=== PATIENT | female | born 1955 | race Caucasian/White ===

== ENCOUNTER 2019-08-01 17:44 | Observation (INO) | payer MEDICARE, OTHER ==
[~2019-08-01] VITALS: Ht 172.7 cm; Wt 59.1 kg
[~2019-08-01 17:44] MED LIST: ALDACTONE25 MG PO; BUSPIRONE HCL30 MG PO; METOPROLOL TART50 MG PO; NEURONTIN 300300 MG PO; NORVASC10 MG PO; PLAVIX75 MG PO; XANAX1 MG PO
[2019-08-01] MEDS ORDERED: ZESTRIL10 MG PO (17:57)
[2019-08-01] MEDS ORDERED: OXYCONTIN15 MG PO (17:58)
--- NOTE | 2019-08-01 18:56 | NUR ---
BS REPORT TO GABRIEL GEE
[2019-08-01 19:00] VITALS: BP 186/98
[2019-08-01 20:00] VITALS: BP 197/94
[2019-08-01] MEDS ORDERED: ZOLOFT100 MG PO (20:06)
[2019-08-01 22:33] VITALS: BP 197/94; BMI 19.8
[2019-08-02] VITALS: BP 187/95
[2019-08-02 01:37] LABS: CKMB 2.4 U/L (0.0-3.6); CREATINE KINASE 132 UL (21-215); TROPONIN-I 0.081 ng/mL (0.000-0.060)
--- NOTE | 2019-08-02 02:34 | NUR ---
I have reviewed this patient and I concur with the Shift Assessment completed by the Licensed Practical Nurse today this shift.
[2019-08-02 04:00] VITALS: BP 199/94
[2019-08-02 04:56] LABS: BASOPHILS 0.2 % (0-2); EOSINOPHILS 2.1 % (0-7); HEMATOCRIT 37.8 % (36.0-48.0); HEMOGLOBIN 11.8 g/dL (12-16); IMMATURE GRANULOCYTES 0.2 % (0-5); LYMPHOCYTES 13.5 % (15-50); MCH 27.4 pg (26.0-34.0); MCHC 31.2 g/dL (31.0-37.0); MCV 87.7 fL (80.0-100.0); MEAN PLATELET VOLUME 11.4 fL (7.4-10.4); MONOCYTES 11.1 % (2-11); NEUTROPHILS 72.9 % (40-80); PLATELET COUNT 219 10x3/uL (130-400); RBC 4.31 10x6/uL (4.00-5.40); RDW 18.8 % (11.5-14.5); WBC 5.7 10x3/uL (4.8-10.8)
[2019-08-02 05:02] LABS: INR 0.97 (0.85-1.17); PROTIME 12.4 SECONDS (11.6-15.0)
[2019-08-02 05:34] LABS: CALC OSMOLALITY 271 mosm/kg (275-300); CALCIUM 8.1 mg/dL (8.5-10.1); CARBON DIOXIDE 29.5 mmol/L (21.0-32.0); CHLORIDE - SERUM 102 mmol/L (98-107); CKMB 2.1 U/L (0.0-3.6); CREATINE KINASE 129 UL (21-215); CREATININE - SERUM 0.6 mg/dL (0.6-1.3); GLUCOSE 74 mg/dL (74-106); MAGNESIUM - SERUM 1.8 mg/dL (1.8-2.4); PHOSPHOROUS 3.2 mg/dL (2.5-4.9); POTASSIUM - SERUM 3.9 mmol/L (3.5-5.1); SODIUM 137 mmol/L (136-145); UREA NITROGEN 11 mg/dL (7-18); eGFR NON AFRICAN AMERICAN > 90 mL/min (90-120)
[2019-08-02 05:35] LABS: TROPONIN-I 0.079 ng/mL (0.000-0.060)
--- NOTE | 2019-08-02 07:45 | NUR ---
ALERT AND ORIENTED. TELEMERTY SHOWS SR. RIGHT AC SL. BRACE TO LEFT WRIST . C/O PAIN ALL OVER. WILL MEDICATE SOON MEDS ARE DUE. SR UP WITH CALL LIGHT IN REACH
[2019-08-02 08:19] VITALS: BP 163/72
[2019-08-02 09:46] VITALS: Ht 172.7 cm; Wt 59.1 kg
[2019-08-02 11:41] VITALS: BP 151/66
[2019-08-02 12:40] LABS: CKMB 2.5 U/L (0.0-3.6); CREATINE KINASE 119 UL (21-215); TROPONIN-I 0.026 ng/mL (0.000-0.060)
--- NOTE | 2019-08-02 12:40 | NUR ---
I have reviewed this patient and I concur with the Shift Assessment completed by the Licensed Practical Nurse today this shift.
[2019-08-02] MEDS ORDERED: ASPIRIN325 MG PO (13:00)
--- NOTE | 2019-08-02 13:33 | NUR ---
PT DISCHARGED. IV DCD WITH TIP INTACT. INSTRUCTIONS GIVEN TO PT. TO PRIVATE CAR PER WHEEL CHAIR
--- NOTE | 2019-08-04 08:59 | MORECARE ---
CASE MANAGEMENT DISCHARGE SUMMARY PATIENT: YO ROBERTS UNIT: [id number] ADM DATE: 08/01/19 AGE: 63 : 53 SEX: F ROOM/BED: D.5459 AUTHOR: LISBETH MOSELEY PHYSICIAN: REFERRING PHYSICIAN: ANDREW KC MD DATE OF SERVICE: 08/04/19 Discharge Plan Patient Name: YO ROBERTS [facility] [facility] 1955 Planned Disposition: Home Anticipated Discharge Date: 08/02/19 Discharge Date: 08/02/2019 Expected LOS: 1 Initial Reviewer: [email or web address] Initial Review Date: 08/04/2019 Generated: 08/04/19 9:58 am Patient Name: YO ROBERTS Page [phone] at 0859 All edits/amendments must be made on the electronic document DICTATION DATE: 08/04/19857 MATH AND SCIENCE DIVISION CHAIR: EMERY 08/04/1960 RPT#: [id number] DC DATE:08/02/19 STATUS: DIS IN [facility] [address] [place] [address] END OF REPORT
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
== END 2019-08-02 13:35 | disposition home or self-care (01) ==
LOC: D.ER 17:44 → D.M2 18:38 → OBSVTIME 18:38 → D.M2 08-02 13:35
PROVIDERS: ADMIT Emergency Medicine; ATTEND Emergency Medicine
DX: S20.219A Contusion of unspecified front wall of thorax, initial encounter (principal); V49.49XA Driver injured in collision with other motor vehicles in traffic accident, initial encounter; I10 Essential (primary) hypertension; F41.8 Other specified anxiety disorders; I25.10 Atherosclerotic heart disease of native coronary artery without angina pectoris; F17.200 Nicotine dependence, unspecified, uncomplicated; G25.81 Restless legs syndrome

== ENCOUNTER 2019-08-21 10:42 | Outpatient (CLI) | payer MEDICARE, OTHER ==
[~2019-08-21] VITALS: Ht 172.7 cm; Wt 58.2 kg
--- NOTE | ~2019-08-21 | HEMODYNAMI ---
PATIENT:YO ROBERTS MEDICAL RECORD: [id number] : 51 LOCATION:D.CAT ADMISSION DATE: 08/21/19 Generatedon:08/21/201913:30 Patient name: YO ROBERTS Patient #: [id number] SSN: [id number] : 1955 Date of study: 08/21/2019 Page: Of Hemodynamic Procedure Report Patient Data Patient Demographics Procedure consent was obtained First Name: YO Gender: Female Last Name: ALEJANDRA : 1955 Middle Initial: S Age: 63 year(s) Patient #: [id number] Race: SSN: [id number] Additional ID: [id number] Contact details Address: [address] [address] State: [place] City: [place] Zip code: [address] Past Medical History Allergies Allergen Reaction Date Comments Reported Penicillins 07/07/2015 Other allergy 07/07/2015 seafppd Other allergy 08/21/2019 PCN, SHELLFISH Admission Admission Data Admission Date: 08/21/2019 Admission Time: 10:42 Arrival Date: 08/21/2019 Arrival Time: 0:00 Admit Source: Other Insurance Payor: Medicare [facility] #: [id number] Height (in.): 68 BSA: 1.69 (m2) Height (cm.): 172.72 BMI: 19.5 (kg/m2) Weight (lbs.): 128.27 Weight (kg.): 58.18 Lab Results Lab Result Date: 08/21/2019 Lab Result Time: 0:00 Biochemistry Name Units Result Min Max BUN mg/dl 16 --(---*)-- 7 18 Creatinine mg/dl 0.6 --(*---)-- 0.6 1.3 eGFR ml/min 90 --(*---)-- 90 120 NONAFRICAN CBC Name Units Result Min Max Hematocrit % 40 -*(----)-- 42 54 Hemoglobin g/dl 13 -*(----)-- 13.5 17.5 Procedure Procedure Types Cath Procedure Diagnostic Procedure [facility] w/Coron[facility] Procedure Description Procedure Date Procedure Date: 08/21/2019 Procedure Start Time: 13:14 Procedure End Time: 13:27 Procedure Staff Name Function Raz Yancey MD Performing Physician Gladis Carpenter RT Monitor Marizol Alexander RT Scrub Joe Brownlee RN Nurse Procedure Data Cath Procedure Fluoroscopy Diagnostic fluoroscopy Total fluoroscopy Time: 1.5 time: 1.5 min min Diagnostic fluoroscopy Total fluoroscopy dose: 186 dose: 186 mGy mGy Contrast Material Contrast Material Type Amount (ml) Isovue 300 63 Entry Location Entry Primary Successful Side Size Upsize Upsize Entry Closure Succes sful Closure Location (Fr) 1 (Fr) 2 (Fr) Remarks Device Remarks Femoral Right 5 Fr Exoseal artery Estimated blood loss: 5 ml Diagnostic catheters Device Type Used For End Catheter Placement MULTIPACK JL 4.0 5Fr Procedure catheter MULTIPACK 3DRC 5Fr Procedure catheter MULTIPACK Pigtail 5 Fr Procedure catheter Procedure Complications No complications Procedure Medications Medication Administration Route Dosage Oxygen etCO2 Nasal cannula 2 l/min Lidocaine 2% added to field 20 Heparin Flush Bag added to field 2 bags (1000units/500ml NS) 0.9% NaCl I.V. 100 ml/hr Versed I.V. 2 mg Fentanyl I.V. 100 mcg Versed I.V. 2 mg Fentanyl I.V. 100 mcg Lopressor I.V. 5 mg Versed I.V. 2 mg Hemodynamics Rest BSA: 1.69 (m2) HGB: 13 (g/dl) O2 Consumption: Estimated: 182.43 (ml/min) O2 Cons umption indexed: Estimated:107.95 (ml/min/m) Heart Rate: 108 (bpm) Pressure Samples Time Site Value (mmHg) Purpose Heart Use Rate(bpm) 13:21 LV 191/18,20 Snapshot 76 Gradients Valve Time Site Site Mean SEP/DFP Peak To Heart Use 1 2 (mmHg) (sec/min) Peak Rate (mmHg) (bpm) Aortic 13:22 LV AO 0 Snapshots Pre Cath Intra NCS Post Cath Vital Signs Time Heart Resp SPO2 etCO2 NIBP (mmHg) Rhythm Pain Sedation Rate (ipm) (%) (mmHg) Status Level (bpm) 13:07:44 87 18 95 0 177/104(132) NSR 0 (11) 10(A) , No pain 13:12:07 82 17 98 9 176/104(155) NSR 0 (11) 10(A) , No pain 13:16:29 82 18 97 21.1 181/101(131) NSR 0 (11) 10(A) , No pain 13:20:53 75 13 97 37.7 187/105(152) NSR 0 (11) 10(A) , No pain 13:25:13 72 16 98 37.7 167/96(146) NSR 0 (11) 10(A) , No pain Medications Time Medication Route Dose Verified Delivered Reason Notes Eff ectiveness by by 13:11:30 Oxygen etCO2 2 Raz Buffie used for Nasal l/min BcAlan Brownlee ocean lifeguard specialist cannula 13:11:42 Lidocaine 2% added 20ml Raz Raz for local to vial [facility] anesthetic field MD MORA 13:11:48 Heparin Flush added 2 Raz Raz used for Bag to bags [facility] procedure (1000units/500ml field MD MORA NS) 13:11:57 0.9% NaCl I.V. 100 Raz Buffie Per ml/hr BcAlan Brownlee RN physician 13:12:02 Fentanyl I.V. 100 Raz Buffie for mcg Bc Brownlee RN sedation 13:12:56 Versed I.V. 2 mg Raz Buffie for Bc Brownlee RN sedation 13:16:20 Versed I.V. 2 mg Raz Buffie for Bc Brownlee RN sedation 13:16:24 Fentanyl I.V. 100 Raz Buffie for mcg Bc Brownlee RN sedation 13:19:59 Versed I.V. 2 mg Raz Buffie for Bc Brownlee RN sedation 13:21:17 Lopressor I.V. 5 mg Raz Buffie Per Bc Brownlee RN physician Procedure Log Time Note 12:31:07 Informed consent obtained and on chart 12:31:20 Insurance Payor : Medicare 12:31:29 Arrival Date: 08/21/2019 12:00:00 AM 12:31:42 Diagnostic Cath Status : Elective 12:32:58 Lab Result : BUN 16 mg/dl 12:32:58 Lab Result : Creatinine 0.6 mg/dl 12:32:58 Lab Result : eGFR NONAFRICAN 90 ml/min 12:32:58 Lab Result : Hemoglobin 13 g/dl 12:32:58 Lab Result : Hematocrit 40 % 12:33:36 Admit Source: Other 12:33:44 Patient Height : 68 inches 12:33:49 Patient Weight : 128.27 lbs 12:45:27 Gladis Carpenter RT(R) sent for patient. Start room use. 12:55:30 Time tracking: Regular hours (M-F 7:00 - 5:00) 12:55:37 Plan of Care:Hemodynamics will remain stable., Cardiac rhythm will remain stable., Comfort level will be maintained., Respiratory function will remain adequate., Patient/ family verbilizes understanding of procedure., Procedure tolerated without complication., Recovers from procedure without complications.. 12:55:46 Patient received from Pre/Post Procedure Room to CCL 1 Alert and oriented. Tansferred to table in Supine position. 12:55:47 Warm blankets applied, and bettie hugger turned on for patient comfort. 12:55:48 Correct patient and procedure confirmed by team. 12:55:48 ECG and BP/O2 sat monitors applied to patient. 12:56:30 Lab results completed and on chart. 12:56:48 Patient pain scale 0/10 ?. 12:57:03 IV patent on arrival in right forearm with 0.9% NaCl at O. 13:06:30 Procedure Status Elective Heart Cath (OP). 13:06:32 Vital chart was started 13:06:35 Baseline sample Acquired. 13:06:40 Rhythm: sinus rhythm 13:06:41 Full Disclosure recording started 13:06:45 H&P Date Dictated: 08/21/2019 New H&P dictated by physician.. 13:06:47 Pre-procedure instructions explained to patient. 13:06:47 Pre-op teaching completed and patient verbalized understanding. 13:06:49 Family in patients room. 13:06:50 Patient NPO since Midnight. 13:07:03 Patient allergic to Other allergyPCN, SHELLFISH 13:07:04 Is the patient allergic to Iodine/contrast media? Yes. 13:07:05 Was the patient premedicated? Yes 13:07:09 Is patient on blood thinner?No 13:07:12 Patient diabetic? No. 13:07:14 Patient not . Patient is over age 55. 13:07:17 Previous problem with sedation/anesthesia? No ? 13:07:19 Snore? Yes 13:07:21 Sleep apnea? No 13:07:21 Deviated septum? No 13:07:22 Opens mouth fully? Yes 13:07:23 Sticks out tongue? Yes 13:07:25 Airway obstruction? No ? 13:07:29 Dentures? Yes IN TIGHT 13:07:31 Pre procedure: right dorsailis pedis pulse 1+ Palpable, but thready & weak; easily obliterated 13:07:35 Patient pain scale 7/10 ?. 13:07:48 IV patent on arrival in right antecubital with 0.9% NaCl at [facility]. 13:08:00 Alarms reviewed by R. N. 13:08:01 Sharps counted by scrub and verified by R.N. 13:08:07 Right groin area was prepped with chlora-prep and draped in sterile fashion 13:10:02 Risk of Mortality: .1 13:10:05 Risk of blood transfusion: .2 13:10:08 Risk of NONA: .7 13:10:16 ACC Patient presents with Stable Angina CCS Anginal Class 4--Inability to carry out any physical activity w/o angina. Angina may occur at rest. 13:10:37 Use device set Femoral Dx 13:10:38 ACIST Syringe (05997) opened to sterile field. 13:10:38 Bag Decanter (2002S) opened to sterile field. 13:10:39 ACIST Manifold (80619) opened to sterile field. 13:10:39 ACIST Hand Control (45446) opened to sterile field. 13:10:40 Tegaderm 4 x 4 (1626W) opened to sterile field. 13:10:41 Medline Cath Pack ([id number]) opened to sterile field. 13:10:42 DIAGNOSTIC Multipack 5Fr catheter set (BE5496) opened to sterile field. 13:10:43 SHEATH 5FR Beccaria (PAF260) opened to sterile field. 13:10:44 EMERALD Guide Wire (588-564) opened to sterile field. 13:11:30 Oxygen 2 l/min etCO2 Nasal cannula was administered by Joe Brownlee RN; used for procedure; Verbal order read back and verified. 13:11:36 --------ALL STOP TIME OUT------ 13:11:37 Final Timeout: patient, procedure, and site verified with staff and physician. All members of the team are in agreement. 13:11:40 Right groin site verified by team. 13:11:42 Lidocaine 2% 20ml vial added to field was administered by Raz Yancey MD; for local anesthetic; Verbal order read back and verified. 13:11:43 Fire Safety Assessment: A--An alcohol-based skin anteseptic being used preoperatively., C--Open oxygen or nitrous oxide is being used., D--An ESU, laser, or fiber-optic light is being used. 13:11:45 Physical assessment completed. ASA score P 2 - A patient with mild systemic disease as per Raz Yancey MD. 13:11:48 Heparin Flush Bag (1000units/500ml NS) 2 bags added to field was administered by Raz Yancey MD; used for procedure; Verbal order read back and verified. 13:11:51 1) 90+ Normal kidney functon but urine findings or structural abnormalities or genetic trait point to kidney disease. 13:11:54 Maximum allowable contrast dose (3.7 X eGFR X 0.75)250 ml. 13:11:57 0.9% NaCl 100 ml/hr I.V. was administered by Joe Brownlee RN; Per physician; Verbal order read back and verified. 13:11:58 Sedation plan: IV Moderate Sedation Medication:Versed, Fentanyl 13:12:02 Fentanyl 100 mcg I.V. was administered by Joe Brownlee RN; for sedation; Verbal order read back and verified. 13:12:56 Versed 2 mg I.V. was administered by Joe Brownlee RN; for sedation; Verbal order read back and verified. 13:14:19 Procedure started. 13:14:34 Baseline sample Acquired. 13:14:52 Local anesthetic to right femoral artery with Lidocaine 2% by Raz Yancey MD.INITIAL ACCESS ONLY 13:16:07 A 5 Fr sheath was inserted into the Right Femoral artery 13:16:20 Versed 2 mg I.V. was administered by Joe Brownlee RN; for sedation; Verbal order read back and verified. 13:16:24 Fentanyl 100 mcg I.V. was administered by Joe Brownlee RN; for sedation; Verbal order read back and verified. 13:17:19 A MULTIPACK JL 4.0 5Fr catheter was advanced over the wire and used for Procedure. 13:18:41 LCA angiography performed. 13:18:51 Catheter removed. 13:18:56 A MULTIPACK 3DRC 5Fr catheter was advanced over the wire and used for Procedure. 13:19:59 Versed 2 mg I.V. was administered by Joe Brownlee RN; for sedation; Verbal order read back and verified. 13:20:25 RCA angiography performed. 13:20:26 Catheter removed. 13:20:35 A MULTIPACK Pigtail 5 Fr catheter was advanced over the wire and used for Procedure. 13:20:39 Zero performed for pressure channel P1 13:20:45 Zero performed for pressure channel P1 13:20:49 Zero performed for pressure channel P1 13:20:51 Zero performed for pressure channel P1 13:21:01 Zero performed for pressure channel P1 13:21:17 Lopressor 5 mg I.V. was administered by Joe Brownlee RN; Per physician; Verbal order read back and verified. 13:21:39 Zero performed for pressure channel P1 13:21:47 Zero performed for pressure channel P1 13:22:03 LV gram done using MON 13:22:05 Injector settings: Ml/sec: 10, Volume: 20, 13:22:18 LV hemodynamics recorded. 13:22:30 EF : 55 % 13:22:32 Catheter removed. 13:22:33 EXOSEAL 5Fr (EX500) opened to sterile field. 13:23:06 Sheath removed intact; hemostasis achieved with Exoseal to the Right Femoral artery. 13:23:52 Procedure ended.(Physican Out) 13:24:06 Fluoroscopy time 01.50 minutes. 13:24:11 Flurop Dose total: 186 13:24:11 Fluoroscopy dose: 186 mGy 13:24:16 Dose Area Product 47773 mGy/cm. 13:24:20 Contrast amount:Isovue 300 63ml. 13:24:23 Maximum allowable dose exceeded? No. 13:24:24 Sharps counted by scrub and verified by R.N. 13:24:28 Post-op/insertion site Right Femoral artery dressed using a 4 x 4 and Tegaderm. 13:25:37 Post-procedure physical assessment completed. ASA score P 2 - A patient with mild systemic disease as per Raz Yancey MD. 13:25:40 Post procedure rhythm: sinus rhythm 13::44 Estimated blood loss: 5 ml 13::45 Post procedure instruction explained to patient.Patient verbalizes understanding. 13:25:45 Patient needs reinforcement of post procedure teaching. 13:27:07 Procedure and supply charges have been captured, reviewed, submitted and are correct. 13:27:10 Procedure Complication : No complications 13:27:12 Vital chart was stopped 13:27:14 [facility] Findings: mild to moderate CAD (<70%) 13:27:16 Operative report dictated upon procedure completion. 13:27:16 See physician's report for complete and final results. 13:27:19 Report given to Pre/Post Procedure Room. 13:27:22 Patient transfered to Pre/Post Procedure Room with Bed. 13:27:24 Procedure ended. 13:27:24 Full Disclosure recording stopped 13:27:27 End room use (Document Last) Device Usage Item Name Manufacture Quantity Catalog Hospital Part Current Minimal L ot# / Number Charge Number Stock Stock Serial# Code ACIST Acist 1 95454 141466 412303 [id number] 20 Syringe Medical (21709) Systems Inc Bag Microtek 1 2001S 152377 47241 007251 5 Decanter Medical Inc. (2001S) ACIST Acist 1 11585 217329 271786 832950 5 Manifold Medical (00487) Systems Inc ACIST Hand Acist 1 17032 901070 330252 831675 5 Control Medical (52647) Systems Inc Tegaderm 4 3M 1 1626W 136673 780164 446761 5 x 4 (1626W) Medline Medline 1 [id number] 062475 11490 584888 5 Cath Pack ([id number]) DIAGNOSTIC Cardinal 1 SJ6666 229793 34276 550108 30 Multipack Health 5Fr catheter set (BQ0833) SHEATH 5FR Terumo 1 OKZ417 027646 681942 808058 5 Beccaria (MRO777) EMERALD Cardinal 1 502-455 947356 575434 797164 5 Guide Wire Health (502-969) MULTIPACK Cardinal 1 307954 5 JL 4.0 5Fr Health catheter MULTIPACK Cardinal 1 256574 5 3DRC 5Fr Health catheter MULTIPACK Cardinal 1 715230 5 Pigtail 5 Health Fr catheter EXOSEAL 5Fr Cardinal 1 EX500 164711 825986 764664 10 (EX500) Health Signature Audit [place] Stage Time Signature Unsigned Intra-Procedure 08/21/2019 Gladis Carpenter 1:29:39 PM RT(R) Intra-Procedure 08/21/2019 Joe Brownlee RN 1:29:59 PM Intra-Procedure 08/21/2019 Raz Carranza 1:30:24 PM Alan MORA [id number] [place] [address]
[~2019-08-21 10:42] MED LIST changes: +ASPIRIN325 MG PO; +OXYCONTIN15 MG PO; +ZESTRIL10 MG PO; +ZOLOFT100 MG PO
[2019-08-21 11:20] VITALS: BP 169/95; Ht 172.7 cm; Wt 58.2 kg
[2019-08-21 11:30] LABS: BASOPHILS 0.1 % (0-2); EOSINOPHILS 0 % (0-7); IMMATURE GRANULOCYTES 0.3 % (0-5); LYMPHOCYTES 9.1 % (15-50); MCH 28.2 pg (26.0-34.0); MCHC 32.5 g/dL (31.0-37.0); MCV 86.8 fL (80.0-100.0); MEAN PLATELET VOLUME 10.8 fL (7.4-10.4); NEUTROPHILS 87.5 % (40-80); PLATELET COUNT 253 10x3/uL (130-400); RBC 4.61 10x6/uL (4.00-5.40); RDW 17.9 % (11.5-14.5); WBC 7.9 10x3/uL (4.8-10.8)
[2019-08-21 11:44] LABS: ALT (SGPT) 22 U/L (10-68); CALC OSMOLALITY 272 mosm/kg (275-300); CALCIUM 8.5 mg/dL (8.5-10.1); CARBON DIOXIDE 27.2 mmol/L (21.0-32.0); CHLORIDE - SERUM 101 mmol/L (98-107); CHOL - HDL RATIO 2.7 ratio (2.3-4.1); CHOLESTEROL, TOTAL 224 mg/dL (0-200); CREATININE - SERUM 0.6 mg/dL (0.6-1.3); HDL CHOLESTEROL 83 mg/dL (32-96); LDL CHOLESTEROL 133 mg/dL (0-100); LDL-HDL RATIO 1.6 ratio (1.5-3.5); POTASSIUM - SERUM 4.1 mmol/L (3.5-5.1); SODIUM 135 mmol/L (136-145); TRIGLYCERIDE 41 mg/dL (30-200); UREA NITROGEN 16 mg/dL (7-18); eGFR NON AFRICAN AMERICAN > 90 mL/min (90-120)
[2019-08-21 11:49] LABS: GLUCOSE 126 mg/dL (74-106)
--- NOTE | 2019-08-21 13:41 | NUR ---
PT ARRIVED BY STRETCHER. PLACED ON MONITOR. ASSESSMENT COMPLETED. CALL LIGHT WITHIN REACH. FAMILY AT BEDSIDE. DR. KOWALSKI ROUNDED AND SPOKE WITH PT AND PT'S FAMILY.
[2019-08-21] MEDS ORDERED: HYDROCODON-ACE1 EA10 PO (13:52)
--- NOTE | 2019-08-21 13:56 | NUR ---
RIGHT GROIN DRESSING C/D/I. NO S/S OF HEMATOMA NOTED. CALL LIGHT WITHIN REACH. FAMILY AT BEDSIDE. VSS AT THIS TIME.
--- NOTE | 2019-08-21 14:30 | NUR ---
RIGHT GROIN DRESSING C/D/I. NO S/S OF HEMATOMA NOTED. CALL LIGHT WITHIN REACH. FAMILY AT BEDSIDE. VSS. PT'S HEAD OF BED INC TO 30 DEGREEES. TOLERATED WELL. SET UP WITH SANDWICH TRAY AND DRINK. DENIES NAUSEA.
--- NOTE | 2019-08-21 15:00 | NUR ---
PIV D/C'D WITH CATH TIP INTACT. TOLERATED WELL. RIGHT GROIN DRESSING C/D/I. NO S/S OF HEMATOMA NOTED. PT UP AND DRESSED.
--- NOTE | 2019-08-21 15:10 | NUR ---
DISCUSSED DISCHARGE INSTRUCTIONS WITH PT. SHE VOICED UNDERSTANDING. PT AMBULATED TO RESTROOM. VOIDED WITHOUT DIFFICULTY. BROTHER SENT OUT TO BRING THE CAR AROUND FOR HOSPITAL CHIEF FINANCIAL OFFICER.
--- NOTE | 2019-08-21 15:15 | NUR ---
PT TAKEN OUT TO VEHICLE BY WHEELCHAIR. NO S/S OF DISTRESS NOTED. ALL BELONGINGS AND PAPERWORK IN HAND.
--- NOTE | 2019-08-22 13:51 | OP ---
PATIENT NAME: YO ROBERTS MEDICAL RECORD: [id number] :51 LOCATION:D.CAT ADMISSION DATE: SURGEON: GIAN REYNOLDS MD DATE OF OPERATION: 08/21/2019 PROCEDURE: Left heart catheterization, selective coronary angiography, right femoral artery approach. CATHETERS: A 5-Nicaraguan sheath, 5/4 left and right Fiorella, 5/4 pig. The procedure was well tolerated. The patient returned to the lopez. Sheath was removed. ExoSeal device placed. FINDINGS: Left ventriculography in 30-degree MON view: Normal wall motion and normal systolic function. CORONARY ANATOMY: LEFT MAIN: Left main is free of disease. LAD: Free of disease in the diagonal system. CIRCUMFLEX: Free of disease in the marginal system. RIGHT CORONARY ARTERY: Dominant artery gives rise to PDA. Area of previous stenting is widely patent. No progression of emmonak disease. IMPRESSION: Normal left ventricular function. No progression of emmonak disease. Widely patent stents. No contraindication to hip surgery from cardiovascular standpoint. TRANSINT:[id number] Voice Confirmation ID: [id number] DOCUMENT ID: [id number] GIAN REYNOLDS MD at 1351 CC: [id number] DICTATION DATE: 08/21/19 1337 ELECTROCARDIOGRAPHIC TECHNICIAN: 08/21/192029 [facility] CLI 08/21/19 [id number] [place] [address]
--- NOTE | 2019-08-22 13:51 | CN ---
PATIENT NAME:YO RODRIGUES MEDICAL RECORD: [id number] : 51 LOCATION:DNIMCO ADMIT DATE: ACCOUNT: [id number] CONSULTING PHYSICIAN: GIAN REYNOLDS MD REFERRING PHYSICIAN: GIAN REYNOLDS MD DATE OF CONSULTATION: 08/21/2019 HISTORY OF PRESENT ILLNESS: Yo Rodrigues is a 63-year-old female with known history of coronary artery disease, status post intervention of the right in the past, was seen for anginal symptomatology, underwent a Cardiolite stress testing. This showed reversible ischemia, continued to have anginal symptomology. After discussing risks as well as beneits the patient prefers to proceed with diagnostic angiography. PAST MEDICAL HISTORY: Includes; 1. History of hypertension. 2. Hyperlipidemia. ALLERGIES: PENICILLIN, SHELLFISH. SOCIAL HISTORY: Smokes a half pack a day. Easily takes care of all her ADLs. No set exercise program. MEDICATIONS: Include OxyContin 15 q.i.d., Zoloft 150 every day, aspirin 325 every day, Xanax 2.5 bedtime, Aldactone 25 every day, lisinopril every day. REVIEW OF SYSTEMS: The patient reports easy bruising but reports no swollen glands. The patient reports no fever, no night sweats, no significant weight gain, no significant weight loss. No significant exercise tolerance. The patient reports no dry eyes, no irritation, no vision change. Patient reports no difficulty hearing and no ear pain. Patient reports no frequent nose bleeds or nose and sinus problems. Patient reports on arm pain on exertion. No shortness of breath while lying down. No history of heart murmur. Patient reports no cough, no wheezing or coughing up blood. Patient reports no abdominal pain, no vomiting. Normal appetite. No diarrhea and not vomiting blood. No nausea and no constipation. Patient reports no incontinence. No difficulty urinating. No hematuria. No increased frequency. Patient reports no muscle aches. No weakness, no arthralgias, no back pain. No swelling of the extremities. Patient reports no abnormal mole, no jaundice, no rashes. Reports no loss of consciousness. No weakness and no numbness. No seizures, dizziness, or headaches. The patient reports no depression, no sleep disturbance, feeling safe in a relationship and no alcohol abuse. Patient reports on fatigue. Reports no runny nose or sinus pressure. No itching, no hives, and no frequent sneezing. PHYSICAL EXAMINATION: GENERAL: Pleasant female, in no acute distress, appears stated age. VITAL SIGNS: Blood pressure 113/64, pulse 62 and regular. HEENT: Normocephalic and atraumatic. NECK: No JVD or bruit. HEART: Regular, II/ systolic ejection murmur. LUNGS: Good air excursion. ABDOMEN: Soft and nontender. EXTREMITIES: Pulses 2+ with no edema. CONSULT REPORT [id number] YO RODRIGUES DIAGNOSTIC DATA: ECG shows poor R-wave progression with inferolateral ST-T segment changes. IMPRESSION: Recurrent angina with known history of coronary artery disease. PLAN: Angiography, intervention based on above. TRANSINT:[id number] Voice Confirmation ID: [id number] DOCUMENT ID: [id number] GIAN REYNOLDS MD at 1351 CC: [id number] DICTATION DATE: 08/21/19 1256 VISUAL EDUCATION DIRECTOR: 08/21/19 1424 [facility] CLI 08/21/[address] [address]
== END 2019-08-21 15:15 | disposition home or self-care (01) ==
LOC: D.CATH 10:42
PROVIDERS: ATTEND Internal Medicine Interventional Cardiology
DX: I25.10 Atherosclerotic heart disease of native coronary artery without angina pectoris (principal); I10 Essential (primary) hypertension; E78.5 Hyperlipidemia, unspecified; R94.30 Abnormal result of cardiovascular function study, unspecified